=== PATIENT | male | born 1995 | race Caucasian/White ===

== ENCOUNTER 2019-01-02 16:04 | Emergency (ER) | payer OTHER ==
--- NOTE | 2019-01-02 17:27 | RAD ---
PORTABLE CHEST 1 VIEW: Date: 01/02/19 Time: 1652 hours HISTORY: Injury, chest pain, rib pain. FINDINGS: The heart size is normal. The lungs are well expanded without lobar consolidation, pneumothoraces, or pleural effusions. IMPRESSION: No radiographic evidence of acute cardiopulmonary process. POS: [facility]
[2019-01-02] MEDS ORDERED: Ondansetron ODT 4 MG TAB ONE (17:58)
[2019-01-02] MEDS ORDERED: Morphine 4 MG/ML VIAL ONE ×2 (17:58→19:37)
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
[2019-01-02] MEDS ORDERED: Lidocaine 1% (PF) 30 ML VIAL ONE (18:38)
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
== END 2019-01-02 20:03 | disposition home or self-care (01) ==
LOC: ERS 16:04
DX: S06.9X9A Unspecified intracranial injury with loss of consciousness of unspecified duration, initial encounter (principal); S01.511A Laceration without foreign body of lip, initial encounter; S02.5XXA Fracture of tooth (traumatic), initial encounter for closed fracture; W22.8XXA Striking against or struck by other objects, initial encounter
CPT/HCPCS: 12051; 70450; 70486; 71045; 72125; 96372; J2001; J2270; Q0162